=== PATIENT | female | born 1995 | race Caucasian/White ===

== ENCOUNTER 2016-08-12 17:33 | Emergency (ER) | payer OTHER ==
[2016-08-12 19:27] LABS: URINE BILIRUBIN NEGATIVE (NEGATIVE); URINE BLOOD TRACE (NEGATIVE); URINE GLUCOSE (UA) NORMAL (NORMAL); URINE KETONE NEGATIVE (NEGATIVE); URINE LEUKOCYTE ESTERASE TRACE (NEGATIVE); URINE NITRATE NEGATIVE (NEGATIVE); URINE PROTEIN TRACE (NEGATIVE); UROBILINOGEN NORMAL mg/dL (<1.0)
[2016-08-12 19:38] LABS: URINE RBC 0-5 /[HPF] (0-2)
[2016-08-12 19:39] LABS: URINE WBC 0-5 /[HPF] (0-5)
== END 2016-08-12 19:49 | disposition home or self-care (01) ==
LOC: ER 17:33
PROVIDERS: Internal Medicine
DX: R10.9 Unspecified abdominal pain (principal); M54.5 Low back pain; X50.0XXA Overexertion from strenuous movement or load, initial encounter; R11.0 Nausea; F17.210 Nicotine dependence, cigarettes, uncomplicated; Z88.6 Allergy status to analgesic agent
CPT/HCPCS: 81001; 81025; 99283